=== PATIENT | female | born 2000 | race Caucasian/White ===

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

== ENCOUNTER 2020-10-26 22:50 | Emergency (ER) | payer OTHER ==
[~2020-10-26] VITALS: Ht 154.9 cm; Wt 62.1 kg
[2020-10-26 22:55] VITALS: BP 112/71
--- NOTE | 2020-10-26 23:01 | NUR ---
Pt ambulated to lobby w/ steady gait.
--- NOTE | 2020-10-26 23:04 | NUR ---
Urine sample collected and handed to EMT. Esvin
[2020-10-27] MEDS ORDERED: cephALEXin 500 MG CAP PO ONE (00:25)
[2020-10-27] MEDS ORDERED: CEPH-588 PO (00:32)
[2020-10-27 00:50] VITALS: BP 112/71
[2020-10-27 17:55] LABS: APPEARANCE,URINE CLOUDY (CLEAR); BILIRUBIN,URINE 1+ (NEGATIVE); BLOOD, URINE 3+ (NEGATIVE); COLOR,URINE AMBER (YELLOW); LEUKOCYTE ESTERASE ,URINE TRACE (NEGATIVE); NITRITE, URINE POSITIVE (NEGATIVE); UGLUCOSE 2+ (NEGATIVE)
[2020-10-27 18:07] LABS: RBC,URINE >100 /HPF (0-5); WBC,URINE 20-60 /HPF (0-5)
== END 2020-10-27 00:50 | disposition home or self-care (01) ==
LOC: MED 22:50
DX: N39.0 Urinary tract infection, site not specified (principal); Z79.899 Other long term (current) drug therapy
CPT/HCPCS: 81001; 81025; 87086; 99283

== ENCOUNTER 2021-04-19 18:21 | Emergency (ER) | payer OTHER ==
[~2021-04-19] VITALS: Ht 154.9 cm; Wt 60.8 kg
[~2021-04-19 18:21] MED LIST: CEPH-588 PO
[2021-04-19 18:26] VITALS: BP 131/81
[2021-04-19] MEDS ORDERED: PYR100 PO (19:04)
[2021-04-19] MEDS ORDERED: ACET-10509 PO (19:04)
[2021-04-19] MEDS ORDERED: CEPH-588 PO (19:04)
[2021-04-19 19:15] VITALS: BP 128/70
== END 2021-04-19 19:15 | disposition home or self-care (01) ==
LOC: MED 18:21
DX: N39.0 Urinary tract infection, site not specified (principal); Z79.899 Other long term (current) drug therapy
CPT/HCPCS: 81002; 81025; 99283

== ENCOUNTER 2021-07-08 16:09 | Emergency (ER) | payer OTHER ==
[~2021-07-08] VITALS: Ht 154.9 cm; Wt 63.5 kg
[~2021-07-08 16:09] MED LIST changes: +ACET-10509 PO; +PYR100 PO
[2021-07-08 16:14] VITALS: BP 116/74
--- NOTE | 2021-07-08 16:33 | NUR ---
21Y/O FEMALE BIB SELF DUE TO DYSURIA, INCREASED URGE TO GO, BLOOD CLOTS, AND LOWER BACK PAIN PAIN RATED 9/10 CURRENTLY. PT DENIES N/V. PMH: NKA DENIES
[2021-07-08] MEDS ORDERED: IBUP-2213 PO (17:23)
[2021-07-08] MEDS ORDERED: PYR100 PO (17:23)
[2021-07-08] MEDS ORDERED: CEPH-588 PO (17:23)
--- NOTE | 2021-07-08 17:33 | NUR ---
Patient discharged with v/s stable. Written and verbal after care instructions given and explained. Patient alert, oriented and verbalized understanding of instructions. Ambulatory with steady gait. All questions addressed prior to discharge. ID band removed. Patient advised to follow up with PMD. Rx of CEPHALEXIN,IBUPROFEN,PHENAZOPYRIDINE were given. Patient educated on indication of medication including possible reaction and side effects. Opportunity to ask questions provided and answered.
== END 2021-07-08 17:33 | disposition home or self-care (01) ==
LOC: MED 16:09
DX: N39.0 Urinary tract infection, site not specified (principal); Z79.899 Other long term (current) drug therapy
CPT/HCPCS: 81002; 81025; 87086; 99283